=== PATIENT | female | born 1970 | race Caucasian/White ===

== ENCOUNTER 2020-12-12 11:03 | Observation (INO) ==
[2020-12-12 12:00] LABS: Basophils # (auto) 0.08 K/uL (0-0.2); Basophils % (auto) 1.1 %; Eosinophils # (auto) 0.11 K/uL (0-0.5); Eosinophils % (auto) 1.5 %; Hematocrit (blood only) 39.3 % (37-47); Hemoglobin 13.4 g/dL (12.0-16.0); Immature Granulocytes # (auto) 0.01 K/uL (0.00-0.02); Immature Granulocytes % (auto) 0.1 %; Lymphocytes # (auto) 2.64 K/uL (1.2-3.4); Lymphocytes % (auto) 35.5 %; Mean Corpuscular Hemoglobin 31.2 pg (25-34); Mean Corpuscular Hgb Conc 34.1 g/dL (32-36); Mean Corpuscular Volume 91.6 fL (80-100); Mean Platelet Volume 9.5 fL (7.4-10.4); Monocytes % (auto) 8.1 %; Neutrophils # (auto) 3.99 K/uL (1.4-6.5); Neutrophils % (auto) 53.7 %; Platelet Count 302 K/uL (130-400); RDW Coefficient of Variation 12.7 % (11.5-14.5); RDW Standard Deviation 42.5 fL (36.4-46.3); Red Blood Count 4.29 M/uL (4.2-5.4); White Blood Count 7.43 K/uL (4.8-10.8)
[2020-12-12 12:10] LABS: D Dimer < 190 ug/L FEU (0-500)
--- NOTE | 2020-12-12 12:14 | Emergency Department Note ---
Impression & Plan Palpitations, Ventricular premature beats, Abnormal ECG ED Provider Note INFORMANT: Patient ED PROVIDER(S): Darell Arredondo MD CHIEF COMPLAINT: Palpitations PLAN: Disposition: Admitted Condition: Good Outpatient prescription management: none Referral: None MEDICAL DECISION MAKING: Patient presented with department complaining of palpitations. Cardiac monitoring revealed frequent ectopy. She had brief periods of bigeminy. She also had a run of 3 beats of PVCs. There were several coupling events. The patient's CBC, D-dimer, troponin, chemistry panel were unremarkable. She had an abnormal EKG. I discussed the case with Dr. Ewing of [facility] cardiology. He asked for the patient to receive 25 mg of metoprolol tartrate as well as 40 mEq of oral potassium. This was ordered. He would like the hospitalist to admit the patient. He is going to come and see her personally. I discussed this with the patient and she is in agreement. I gave my usual and customary discussion regarding this issue. Triage Nursing notes reviewed and agree them. Vital Signs: reviewed and remarkable for no significant abnormalities Differential diagnosis: Premature contractions, electrolyte abnormality, cardiac dysrhythmia, thyroid dy sfunction, pulmonary embolism, infection, gastrointestinal, as well as other pathologies. Diagnostics interpreted by me: ECG: Twelve-lead ECG reveals sinus tachycardia at 107 bpm. Bilateral atrial enlargement present. Nonspecific T and ST abnormality present. No ST elevation. No PACs. Cardiac Monitoring: Cardiac monitoring ordered by me: The patient was placed on continuous cardiac monitoring and observed. It revealed a sinus rhythm with frequent PVCs at 87 bpm. Imaging studies: Chest x-ray. Findings: A chest x-ray was performed and revealed no pneumothorax, effusion, infiltrate, pulmonary edema, free air under the diaphragm, or wide mediastinum. Impression: No acute disease. HPI: The patient is a 50 year old female who presents to the Emergency Room with complaints of palpitations. This started a week ago and is persisting, but intermittent. The patient also notes the following associated symptoms, anxiety. The patient has taken no medication for relieving factors. Current pain is rated as 0/10. Pt denies LOC, headache, fevers, chills, diaphoresis, visual changes, neck pain, chest pain, breathing difficulties, nausea, vomiting, abdominal pain, back pain, melena, hematochezia, urinary symptoms, numbness, weakness, lymphadenopathy, rash, or other complaints. ROS: See above HPI for pertinent positives & negatives. A total of 10 systems reviewed and were otherwise negative. PAST MEDICAL HISTORY:See Below , pt denies PAST SURGICAL HISTORY:See Below, SANDRA FAMILY HISTORY:See Below SOCIAL HISTORY:See Below, -tobacco HOME MEDICATIONS:See Below ALLERGIES:See Below VITALS:See Below PHYSICAL EXAMINATION: GENERAL: Awake, alert, well-appearing, in no distress HENT: Normocephalic, atraumatic. Oropharynx unremarkable. EYES: Normal conjunctiva. Sclera non-icteric. NECK: Inspection normal. Non-tender. Supple. No nuchal rigidity. FROM. No masses. RESPIRATORY: Clear to auscultation. No wheezes. No rales. Normal respiratory effort. CARDIAC: Normal rate. Normal rhythm. No murmurs. No rubs. Extremities warm and well perfused. Pulses equal. No JVD. GI: Soft, non-distended. No tenderness to palpation. No rebound or guarding. No masses. RECTAL: Deferred. MUSCULOSKELETAL: Atraumatic. Chest examination reveals no tenderness. The back is symmetrical on inspection without obvious abnormality. There is no CVA tenderness to palpation. No joint edema. LOWER EXTREMITIES: Calves are equal size bilaterally and non-tender. No edema. No discoloration. NEURO: Normal sensorium. No sensory or motor deficits noted. SKIN: No rash or jaundice noted. Darell Arredondo MD Past Med/Surg History Medical History (Updated 12/12/20 @ 14:35 by Darell Arredondo MD) Fibroids History of abnormal cervical Papanicolaou smear Hx of human papillomavirus infection Surgical History H/O: hysterectomy History of loop electrical excision procedure (LEEP) S/P dilation and curettage S/P wisdom tooth extraction Family History Other No pertinent family history Social History Smoking Status: Never smoker Preferred Language: [place] Feels Safe at Home: Yes Allergies Allergies Allergy/AdvReac Type Severity Reaction Status Date / Time No Known Drug Allergies Allergy Verified 12/12/20 13:00 Home Meds Home Medications Medication Instructions Recorded Confirmed conjugated estrogens 0.625 mg 0.625 mg PO DAILY tab 04/06/19 12/12/20 tablet Results & Data (ED) Vital Signs Vital Signs - 24 hr 12/12/20 11:17 12/12/20 11:20 12/12/20 11:30 Temperature Temperature Source Pulse Rate 108 H 106 H 87 Pulse Rate [Right Finger] Pulse Rate from SpO2 Sensor 87 Pulse Rhythm Pulse Rhythm [Right Finger] Pulse Strength Pulse Strength [Right Finger] Respiratory Rate 15 13 17 Respiratory Effort / Characteristics Respiratory Depth Respiratory Pattern Blood Pressure 146/92 H 146/68 H Blood Pressure [Left Arm] Blood Pressure Mean 110 94 Blood Pressure Mean [Left Arm] Blood Pressure Position [Left Arm] Pulse Oximetry 100 Oxygen Delivery Method Sepsis Recent Fever Within 48 Hours Sepsis New/Unexplained Change in Mental Status Sepsis Action Taken by Nursing 12/12/20 11:31 12/12/20 11:34 12/12/20 12:00 Temperature 36.5 C Temperature Source Oral Pulse Rate 82 105 H 78 Pulse Rate [Right Finger] Pulse Rate from SpO2 Sensor 82 78 Pulse Rhythm Regular Pulse Rhythm [Right Finger] Pulse Strength Normal Pulse Strength [Right Finger] Respiratory Rate 11 L 26 H 13 Respiratory Effort / Characteristics Respiratory Depth Shallow Respiratory Pattern Tachypnea Blood Pressure 142/84 H Blood Pressure [Left Arm] Blood Pressure Mean 103 Blood Pressure Mean [Left Arm] Blood Pressure Position [Left Arm] Pulse Oximetry 100 100 100 Oxygen Delivery Method Room Air Sepsis Recent Fever Within 48 Hours No Sepsis New/Unexplained Change in Mental Status No Sepsis Action Taken by Nursing No Action Required 12/12/20 12:01 12/12/20 12:07 Temperature Temperature Source Pulse Rate 75 Pulse Rate [Right Finger] 77 Pulse Rate from SpO2 Sensor 73 Pulse Rhythm Pulse Rhythm [Right Finger] Regular Pulse Strength Pulse Strength [Right Finger] Normal Respiratory Rate 14 19 Respiratory Effort / Characteristics Non-Labored Respiratory Depth Normal Respiratory Pattern Blood Pressure 113/63 Blood Pressure [Left Arm] 113/63 Blood Pressure Mean 79 Blood Pressure Mean [Left Arm] 79 Blood Pressure Position [Left Arm] Semi-fowlers Pulse Oximetry 100 99 Oxygen Delivery Method Room Air Sepsis Recent Fever Within 48 Hours Sepsis New/Unexplained Change in Mental Status Sepsis Action Taken by Nursing Laboratory Data Result diagrams: 12/12/20 11:30 12/12/20 11:30 Lab Results 12/12/20 12/12/20 12/12/20 Range/Units 11:29 11:30 11:30 WBC 7.43 (4.8-10.8) K/uL RBC 4.29 (4.2-5.4) M/uL Hgb 13.4 (12.0-16.0) g/dL Hct 39.3 (37-47) % MCV 91.6 (80-100) fL MCH 31.2 (25-34) pg MCHC 34.1 (32-36) g/dL RDW Std Deviation 42.5 (36.4-46.3) fL RDW Coeff of Steve 12.7 (11.5-14.5) % Plt Count 302 (130-400) K/uL MPV 9.5 (7.4-10.4) fL Immature Gran % (Auto) 0.1 % Neut % (Auto) 53.7 % Lymph % (Auto) 35.5 % [place] % (Auto) 8.1 % Eos % (Auto) 1.5 % Baso % (Auto) 1.1 % Neut # (Auto) 3.99 (1.4-6.5) K/uL Lymph # (Auto) 2.64 (1.2-3.4) K/uL [place] # (Auto) 0.60 H (0.11-0.59) K/uL Eos # (Auto) 0.11 (0-0.5) K/uL Baso # (Auto) 0.08 (0-0.2) K/uL Immature Gran # (Auto) 0.01 (0.00-0.02) K/uL D-Dimer < 190 (0-500) ug/L FEU Sodium (136-145) mmol/L Potassium (3.5-5.1) mmol/L Chloride (98-107) mmol/L Carbon Dioxide (21-32) mmol/L Anion Gap (3-11) BUN (7-18) mg/dl Creatinine (0.6-1.2) mg/dl Est Cr Clr Drug Dosing ml/min Est GFR ( Amer) Est GFR (Non-Af Amer) BUN/Creatinine Ratio (10-20) Glucose (70-99) mg/dl POC Glucose 94 (70-99) mg/dl Calcium (8.5-10.1) mg/dl Magnesium (1.8-2.4) mg/dl Total Bilirubin (0.2-1) mg/dl AST (15-37) U/L ALT (12-78) U/L Alkaline Phosphatase (45-117) U/L Troponin I (0-0.045) ng/ml Total Protein (6.4-8.2) gm/dl Albumin (3.4-5.0) gm/dl Globulin (2.5-4.0) gm/dl Albumin/Globulin Ratio (0.9-2) TSH (0.300-4.500) uIu/ml HCG, Qual (Negative) 12/12/20 12/12/20 Range/Units 11:30 11:30 WBC (4.8-10.8) K/uL RBC (4.2-5.4) M/uL Hgb (12.0-16.0) g/dL Hct (37-47) % MCV (80-100) fL MCH (25-34) pg MCHC (32-36) g/dL RDW Std Deviation (36.4-46.3) fL RDW Coeff of Steve (11.5-14.5) % Plt Count (130-400) K/uL MPV (7.4-10.4) fL Immature Gran % (Auto) % Neut % (Auto) % Lymph % (Auto) % [place] % (Auto) % Eos % (Auto) % Baso % (Auto) % Neut # (Auto) (1.4-6.5) K/uL Lymph # (Auto) (1.2-3.4) K/uL [place] # (Auto) (0.11-0.59) K/uL Eos # (Auto) (0-0.5) K/uL Baso # (Auto) (0-0.2) K/uL Immature Gran # (Auto) (0.00-0.02) K/uL D-Dimer (0-500) ug/L FEU Sodium 138 (136-145) mmol/L Potassium 3.4 L (3.5-5.1) mmol/L Chloride 106 (98-107) mmol/L Carbon Dioxide 25 (21-32) mmol/L Anion Gap 7.0 (3-11) BUN 18 (7-18) mg/dl Creatinine 0.66 (0.6-1.2) mg/dl Est Cr Clr Drug Dosing 97.2 ml/min Est GFR ( Amer) 120.2 Est GFR (Non-Af Amer) 103.7 BUN/Creatinine Ratio 26.8 H (10-20) Glucose 96 (70-99) mg/dl POC Glucose (70-99) mg/dl Calcium 8.8 (8.5-10.1) mg/dl Magnesium 2.0 (1.8-2.4) mg/dl Total Bilirubin 0.4 (0.2-1) mg/dl AST 20 (15-37) U/L ALT 20 (12-78) U/L Alkaline Phosphatase 56 (45-117) U/L Troponin I < 0.015 (0-0.045) ng/ml Total Protein 7.7 (6.4-8.2) gm/dl Albumin 3.9 (3.4-5.0) gm/dl Globulin 3.8 (2.5-4.0) gm/dl Albumin/Globulin Ratio 1.0 (0.9-2) TSH 2.020 (0.300-4.500) uIu/ml HCG, Qual Negative (Negative) Administered Medications Discontinued Medications Metoprolol Tartrate (Metoprolol Tartrate 25 Mg Tab) 25 mg PO NOW STA Stop: 12/12/20 13:52 Last Admin: 12/12/20 14:12 Dose: 25 mg Documented by: [id number] Potassium Chloride (Potassium Chloride Crtab 20 Meq Tabcr) 40 meq PO NOW STA Stop: 12/12/20 13:52 Last Admin: 12/12/20 14:12 Dose: 40 meq Documented by: [id number] Imaging Data Radiologist's Impression: Chest X-Ray 12/12/20 11:44 XR chest 1V portable CLINICAL HISTORY: Dysrhythmia COMPARISON STUDY: No previous studies for comparison. FINDINGS: Lung volumes are normal. Lungs are clear. There is no pneumothorax or pleural effusion. Cardiac size is normal. Mediastinal contours are normal. There is no evidence for pulmonary edema. Intramedullary mellisa within the left humerus is partially imaged. There are suspected bilateral breast implants. Note is made of mild dextroscoliosis of the mid to lower thoracic spine. IMPRESSION: No acute cardiopulmonary findings. ACT 112: Negative or not required by law. Electronically signed by: Luis Baeza M.D. 12/12/2020 12:49 PM Discharge Plan Visit Data Chief Complaint: Arrhythmia/Palpitations Stated Complaint: IRREGULAR HEART BEAT,FEELING FAINT ED Provider: Darell Arredondo Discharge Problem: Palpitations, Ventricular premature beats, Abnormal ECG Forms Stand Alone Forms: [facility] Prescriptions Prescriptions: No Action Premarin 0.625 mg tablet 0.625 mg PO DAILY RF: 0
[2020-12-12 12:17] LABS: Pregnancy Test, Serum Negative (Negative)
[2020-12-12 12:21] LABS: Alanine Aminotransferase 20 U/L (12-78); Albumin Level 3.9 gm/dl (3.4-5.0); Aspartate Aminotransferase 20 U/L (15-37); BUN Creatinine Ratio 26.8 (10-20); Blood Urea Nitrogen 18 mg/dl (7-18); Calcium 8.8 mg/dl (8.5-10.1); Carbon Dioxide 25 mmol/L (21-32); Chloride 106 mmol/L (98-107); Creatinine Clr Calc Pharmacy 97.2 ml/min; Est GFR (African American) 120.2; Est GFR (Non-African American) 103.7; Glucose 96 mg/dl (70-99); Potassium 3.4 mmol/L (3.5-5.1); Sodium 138 mmol/L (136-145)
[2020-12-12 12:32] LABS: Alkaline Phosphatase 56 U/L (45-117); Bilirubin,Total 0.4 mg/dl (0.2-1); Globulin 3.8 gm/dl (2.5-4.0); Total Protein 7.7 gm/dl (6.4-8.2); Troponin I < 0.015 ng/ml (0-0.045)
--- NOTE | 2020-12-12 12:51 | XRay Report ---
XR chest 1V portable CLINICAL HISTORY: Dysrhythmia COMPARISON STUDY: No previous studies for comparison. FINDINGS: Lung volumes are normal. Lungs are clear. There is no pneumothorax or pleural effusion. Car diac size is normal. Mediastinal contours are normal. There is no evidence for pulmonary edema. Intra medullary mellisa within the left humerus is partially imaged. There are suspected bilateral breast impla nts. Note is made of mild dextroscoliosis of the mid to lower thoracic spine. IMPRESSION: No acute cardiopulmonary findings. ACT 112: Negative or not required by law. Electronically signed by: Luis Baeza M.D. 12/12/2020 12:49 PM
[2020-12-12] MEDS ORDERED: POTASSIUM CHLORIDE CRTAB 20 MEQ TABCR PO STA (13:51)
[2020-12-12] MEDS ORDERED: METOPROLOL TARTRATE 25 MG TAB PO STA (13:51)
--- NOTE | 2020-12-12 14:44 | History & Physical Report ---
Date of Service December 12, 2020 Assessment & Plan (1) Palpitations: (2) Ventricular premature beats: (3) Hypokalemia: (4) Abnormal ECG: This is a 50 year old F who is otherwise healthy who presents to ED 2/2 to palpitations x 1 week. ECG shows sinus tachycardia and telemetry reveals a multifocal PVC. She was seen and evaluated by cardiology in ED. She received metoprolol tartrate 25 mg x 1 as well as potassium replacement. Admit to telemetry for further heart monitoring Cardiology consulted Obtain echocardiogram Metoprolol initiated Replace potassium Check Lyme, Anaplasma and babesiosis screen per cardiology Patient does have history of anxiety and states she occasionally takes Xanax and vapes medical marijuana -obtain drug tox screen Dispo: Telemetry PCP: Lorena Full Code DVT ppx: SCD/TEDS Pt was seen and examined in collaboration with Dr. Gerber, please see addendum History of Present Illness Chief Complaint: Palpitations and dizziness x 1 week. Primary Care Provider: Landry Carrillo DO This is a 50 year old F who is otherwise healthy who presents to ED 2/2 to palpitations x 1 week. Sx have been worsening causing her to be dizzy. Father is at bedside. She was at [facility] today when palpitations got worse and felt like she was going to pass out to she came to ED. She was to see PCP in clinic. Sx comes and goes. Caffeine seems to worsen sx. Drinks 2 cups daily which is normal for her. Occasional ETOH use. Denies new medications. She denies any recent illness. She has chronic difficulty with constipation and she takes stool softeners for that. She does admit to anxiety and increased stress. Occassionally a, "little piece of xanax," once a month she takes. She does not take anything for anxiety on regular basis. Denies f/c/s, chest pain, sob with exertion, sob, cough, uri sx, n/v/d, abdominal pain, change in bowel or bladder habits. She is very active and was out hiking. She did notice tick on her legs. No prior hx of tick borne disease. She has experienced palpitations in past, but not to this degree. Allergies Allergy/AdvReac Type Severity Reaction Status Date / Time No Known Drug Allergies Allergy Verified 12/12/20 13:00 Home Medications Medication Instructions Recorded Confirmed Type conjugated estrogens 0.625 mg 0.625 mg PO DAILY tab 04/06/19 12/12/20 History tablet Past Med/Surg History Medical History Fibroids History of abnormal cervical Papanicolaou smear Hx of human papillomavirus infection Surgical History H/O: hysterectomy History of loop electrical excision procedure (LEEP) S/P dilation and curettage S/P wisdom tooth extraction Family History Father Aortic valve replaced History of heart bypass surgery, Onset Age: 69 Denies family history of Hypertension Social History Smoking Status: Never smoker Tobacco Type: E-cigarettes / Vaping Hx Alcohol Use: No (holidays) Hx Substance Use: No Preferred Language: Portuguese Communication Ability: Effective Computer Mechanic Required: No Beliefs That Will Affect Care: None Current Living Situation: Alone Other Information That Helps Us Care for You: No Feels Safe at Home: Yes Safety Concerns: Feels Safe At This Time Assistive Devices: None Review of Systems Review of Systems: All systems reviewed & are unremarkable except as noted in HPI & below Physical Exam Physical Exam: Constitutional: WD/WN, F, vitals as above, NAD, sitting up in bed, pleasant, conversing easily Head: Normocephalic, Atraumatic Eyes: PERRL, conjunctivae normal, anicteric sclerae ENMT: external ear and nose normal, oropharynx normal Neck: trachea midline, no thyromegaly normal visual inspection Respiratory: normal respiratory effort, lungs clear to auscultation, no wheeze, rales, rhonchi. Normal insp/exp effort, no accessory muscle use Cardiovascular: RRR, no murmur, no edema Vessels: no JVD or carotid bruit Chest: normal inspection of chest Abdomen: normal bowel sounds, soft, nontender, no hepatosplenomegaly Musculoskeletal: no cyanosis or clubbing, extremities motor strength 5/5 Skin: no rashes, warm and dry normal turgor Neurologic: PERRL, no face palsy, no dysarthria CN's II-XI intact bilaterally and moves all extremities Psychiatric: A+Ox3, euthymic affect : deferred Results & Data Results & Data ([facility]) Vital Signs (Past 12 Hours) Vital Signs Temp Pulse Pulse Resp BP BP Pulse Ox 12/12/20 12:07 77 19 113/63 99 12/12/20 12:01 75 14 113/63 100 12/12/20 12:00 78 13 100 12/12/20 11:34 36.5 C 105 H 26 H 142/84 H 100 12/12/20 11:31 82 11 L 100 12/12/20 11:30 87 17 146/68 H 100 12/12/20 11:20 106 H 13 12/12/20 11:17 108 H 15 146/92 H Diagnostic Findings Chest X-Ray 12/12/20 11:44 XR chest 1V portable CLINICAL HISTORY: Dysrhythmia COMPARISON STUDY: No previous studies for comparison. FINDINGS: Lung volumes are normal. Lungs are clear. There is no pneumothorax or pleural effusion. Cardiac size is normal. Mediastinal contours are normal. There is no evidence for pulmonary edema. Intramedullary mellisa within the left humerus is partially imaged. There are suspected bilateral breast implants. Note is made of mild dextroscoliosis of the mid to lower thoracic spine. IMPRESSION: No acute cardiopulmonary findings. ACT 112: Negative or not required by law. Electronically signed by: Luis Baeza M.D. 12/12/2020 12:49 PM Medications Administered Discontinued Medications Metoprolol Tartrate (Metoprolol Tartrate 25 Mg Tab) 25 mg PO NOW STA Stop: 12/12/20 13:52 Last Admin: 12/12/20 14:12 Dose: 25 mg Documented by: [id number] Potassium Chloride (Potassium Chloride Crtab 20 Meq Tabcr) 40 meq PO NOW STA Stop: 12/12/20 13:52 Last Admin: 12/12/20 14:12 Dose: 40 meq Documented by: [id number] ECG Rate (beats per minute): 107 Rhythm: sinus tachycardia Findings: + nonspecific-ST abn and + PVC COVID-19 Results Results COVID-19 Adm Lab Results: RBC 4.29 M/uL (4.2-5.4) 12/12/20 WBC 7.43 K/uL (4.8-10.8) 12/12/20 Hgb 13.4 g/dL (12.0-16.0) 12/12/20 Hct 39.3 % (37-47) 12/12/20 Plt Count 302 K/uL (130-400) 12/12/20 Neutrophils (%) (Auto) 53.7 % 12/12/20 Lymphocytes (%) (Auto) 35.5 % 12/12/20 Monocytes # (Auto) 0.60 K/uL (0.11-0.59) H 12/12/20 Eosinophils # (Auto) 0.11 K/uL (0-0.5) 12/12/20 Immature Granulocyte % (Auto) 0.1 % 12/12/20 Neutrophils # (Auto) 3.99 K/uL (1.4-6.5) 12/12/20 Lymphocytes # (Auto) 2.64 K/uL (1.2-3.4) 12/12/20 Monocytes # (Auto) 0.60 K/uL (0.11-0.59) H 12/12/20 Eosinophils # (Auto) 0.11 K/uL (0-0.5) 12/12/20 Basophils # (Auto) 0.08 K/uL (0-0.2) 12/12/20 Immature Granulocyte # (Auto) 0.01 K/uL (0.00-0.02) 12/12/20 Na 138 mmol/L (136-145) 12/12/20 K 3.4 mmol/L (3.5-5.1) L 12/12/20 Cl 106 mmol/L (98-107) 12/12/20 CO2 25 mmol/L (21-32) 12/12/20 Anion Gap 7.0 (3-11) 12/12/20 BUN 18 mg/dl (7-18) 12/12/20 Creatinine 0.66 mg/dl (0.6-1.2) 12/12/20 BUN/Creatinine Ratio 26.8 (10-20) H 12/12/20 Glucose Level 96 mg/dl (70-99) 12/12/20 Ca 8.8 mg/dl (8.5-10.1) 12/12/20 Total Bilirubin 0.4 mg/dl (0.2-1) 12/12/20 AST/SGOT 20 U/L (15-37) 12/12/20 ALT/SGPT 20 U/L (12-78) 12/12/20 Alkaline Phosphatase 56 U/L (45-117) 12/12/20 Total Protein 7.7 gm/dl (6.4-8.2) 12/12/20 Albumin 3.9 gm/dl (3.4-5.0) 12/12/20 Globulin 3.8 gm/dl (2.5-4.0) 12/12/20 Albumin/Globulin Ratio 1.0 (0.9-2) 12/12/20 Troponin I < 0.015 ng/ml (0-0.045) 12/12/20 D-Dimer < 190 ug/L FEU (0-500) 12/12/20 COVID-19 PCR NEGATIVE (Negative) 12/12/20 Influenza Virus Type A (PCR) Negative (Neg) 12/12/20 Influenza Virus Type B (PCR) Negative (Neg) 12/12/20 Chest X-Ray 12/12/20 Code Status & VTE Plan Code Status Full Code VTE Prophylaxis Plan VTE Prophylaxis will be ordered: Yes Supervising Physician Co-Signing Physician Notes Patient is a 50-year-old female with no significant past medical history presents with history of worsening palpitations associated with dizziness since 1 week duration. She admits that caffeine intake increases her palpitations. Please review HPI for complete details of presentation. EKG showed frequent multifocal PVCs and was noted to be hypokalemic on labs. TSH within normal limits. She denies any history of tachybradycardia arrhythmias in the past. On exam patient is thin, no apparent distress, normocephalic atraumatic, lungs are clear to auscultation, normal breath sounds, S1-S2, no murmur, no pedal edema, abdomen soft, nontender, normal bowel sounds, alert, awake, oriented, grossly no focal neurological deficits. Patient is admitted for management of symptomatic PVCs. Will check Lyme screen. Replace potassium. Start on metoprolol 25 mg twice daily. Check resting echo. Monitor on telemetry. Cardiology consulted. She admits to using marijuana 1 week ago. Will obtain urine toxicology screen. I personally reviewed the record. Patient is interviewed and examined at bedside. Patient's care is coordinated with [place] Dan PA-C. Please refer to the documentation above for details of patient's presentation and for discussion of other issues.
[2020-12-12 15:41] LABS: Influenza A virus by PCR Negative (Neg); Influenza B virus by PCR Negative (Neg); RSV by PCR Negative (Neg); SARS CoV2 RNA(COVID-19) InHosp NEGATIVE (Negative)
[2020-12-12 16:20] LABS: Lyme Ab IgG w/WB Rflx Negative (Negative); Lyme Ab IgM w/WB Rflx Negative (Negative)
--- NOTE | 2020-12-12 16:27 | Cardiology Consultation ---
Date of Consultation December 12, 2020 Assessment & Plan (1) Frequent PVCs: (2) Dizziness: (3) Tick bite: (4) Abnormal ECG: (5) Hypokalemia: It was my pleasure to see Ms. Dickson in consultation today. The pathophysiology and treatment options for symptomatic PVCs were discussed with her at great lengths today. I believe the most prudent course of action at this point would be to obtain a tick bite work-up for Lyme, babesiosis etc. Her potassium is a little on the low side and I recommend giving her 40 mEq p.o. x1 now which was given in the ER. I also recommended giving her a one-time dose of metoprolol tartrate 25 mg x 1 now as well. We will obtain a 2D echocardiogram to eval for any structural abnormalities. Admit to telemetry to rule out any further underlying arrhythmias. She was reexamined 1 hour after receiving the metoprolol states that she feels 100% better now. History of Present Illness Reason for Consultation: Palpitations and lightheadedness Requesting Physician: [facility] Attending Physician: [facility] History of Present Illness It was my pleasure to see Ms. Dickson in cardiac consultation today 12/12/2020. She is a very pleasant and very healthy 50-year-old woman who presented to the emergency department today with complaints of palpitations and lightheadedness. She states that she first noticed the symptoms approximately 1 week ago. Her heart would occasionally seem to race or pounding quickly in her chest and this was occasionally associated with dizziness. Today she was driving to the grocery store when she had an episode while driving it made her significantly dizzy to the point where she pulled over. At that time she came into the emergency department for further evaluation. Initial work-up was unremarkable except for a diffusely abnormal EKG and frequent multifocal PVCs on telemetry. During examination patient was experiencing frequent palpitations that do would correlate with PVCs on telemetry. She denies anything out of the ordinary lately without any significant dietary changes. No significant alcohol, recreational drug use or excess caffeine use as of late. She does exercise on a regular basis and never has palpitations while exercising. She does spend a lot of time outdoors and recently had multiple ticks removed from her lower extremities. Upon further questioning she notes that her left knee has been achy for the last week as well. Allergies Allergy/AdvReac Type Severity Reaction Status Date / Time No Known Drug Allergies Allergy Verified 12/12/20 13:00 Home Medications Medication Instructions Recorded Confirmed Type conjugated estrogens 0.625 mg 0.625 mg PO DAILY tab 04/06/19 12/12/20 History tablet Patient History Medical History (Updated 12/12/20 @ 16:25 by Kyle Ewing DO) Fibroids History of abnormal cervical Papanicolaou smear Hx of human papillomavirus infection Surgical History H/O: hysterectomy History of loop electrical excision procedure (LEEP) S/P dilation and curettage S/P wisdom tooth extraction Family History Father Aortic valve replaced History of heart bypass surgery, Onset Age: 68 Denies family history of Hypertension Social History Smoking Status: Never smoker Tobacco Type: E-cigarettes / Vaping Hx Alcohol Use: Yes Alcohol type: beer and wine Alcohol Intake Frequency: 2-3 x/Week Alcohol Intake Frequency Comment: 1 wine every other day Hx Substance Use: No Preferred Language: Macedonian Feels Safe at Home: Yes Review of Systems Review of Systems: All systems reviewed & are unremarkable except as noted in HPI & below Physical Exam Physical Exam: Physical Exam: General: Awake, alert and oriented x 3. No acute distress. HEENT: Normocephalic, atraumatic. Pupils equal, round and reactive to light and accommodation. Extraocular muscles are intact. Anicteric sclera. Moist mucous membranes. Neck: No JVD. No bruit. Cardiovascular: Regular. No S-4. Normal S-1 and S-2. No S-3. No murmurs, rubs or gallops. Pulmonary: Clear to auscultation bilaterally. No rales, rhonchi, or wheezing. Abdomen: Bowel sounds x 4, soft. No rebound, guarding or tenderness. No organomegaly. Extremities: No clubbing, cyanosis or edema. +2 pedal pulses bilaterally. Skin: Warm and dry. Results & Data ([facility]) Vital Signs (Past 12 Hours) Vital Signs Temp Pulse Pulse Resp BP BP Pulse Ox 12/12/20 16:01 63 16 99 04/29/21 16:00 65 17 120/79 99 12/12/20 15:31 66 15 100 12/12/20 15:30 66 19 118/62 12/12/20 15:01 71 15 99 12/12/20 15:00 69 16 139/46 L 100 12/12/20 14:31 90 22 100 12/12/20 14:30 90 18 135/82 100 12/12/20 14:01 93 H 15 100 12/12/20 14:00 88 15 117/67 100 12/12/20 13:31 17 12/12/20 13:30 19 117/66 12/12/20 13:17 17 136/77 99 12/12/20 13:00 24 12/12/20 12:31 75 17 100 12/12/20 12:30 74 14 139/70 100 12/12/20 12:07 77 19 113/63 99 12/12/20 12:02 75 14 100 12/12/20 12:01 75 14 113/63 100 12/12/20 12:00 78 13 100 12/12/20 11:34 36.5 C 105 H 26 H 142/84 H 100 12/12/20 11:31 82 11 L 100 12/12/20 11:30 87 17 146/68 H 100 12/12/20 11:20 106 H 13 12/12/20 11:17 108 H 15 146/92 H
[2020-12-12] MEDS ORDERED: ALUMINUM/MAGNESIUM SUSP 30 ML UDC PO PRN (18:36)
[2020-12-12] MEDS ORDERED: POTASSIUM CHLORIDE CRTAB 20 MEQ TABCR PO ONE (18:36)
[2020-12-12] MEDS ORDERED: MAGNESIUM HYDROXIDE SUSP 30 ML UDC PO PRN (18:36)
[2020-12-12] MEDS ORDERED: POLYETHYLENE (MIRALAX) 17 GM PACK PO PRN (18:36)
[2020-12-12] MEDS ORDERED: ONDANSETRON INJ 2 MG/ML 2 ML VIAL IV PRN (18:36)
[2020-12-12] MEDS ORDERED: ACETAMINOPHEN 325 MG TAB PO PRN (18:36)
[2020-12-12] MEDS ORDERED: METOPROLOL SUCC 25MG EXT REL TAB PO SCH (21:00)
[2020-12-12] MEDS ORDERED: diphenhydrAMINE Capsule 25 MG CAP PO ONE (21:39)
[2020-12-12 22:06] LABS: Appearance Urine Clear (Clear); Bilirubin Urine Negative (Negative); Blood Urine Negative (Negative); Color Urine Yellow; Glucose Urine UA Negative (Negative); Ketones Urine 1+ (Negative); Leukocyte Esterase Urine Negative (Negative); Nitrite Urine Negative (Negative); Protein Urine Negative (Negative); Specific Gravity Urine 1.011 (1.000-1.030); Urobilinogen Urine Negative (Negative)
[2020-12-12 22:25] LABS: Amphetamines+Metham, Urine Neg (Neg); Barbiturates, Urine Neg (Neg); Benzodiazepine, Urine Neg (Neg); Cocaine, Urine Neg (Neg); MDMA (Ecstacy), Urine Neg (Neg); Methadone, Urine Neg (Neg); Opiate, Urine Neg (Neg); Phencyclidine, Urine Neg (Neg)
--- NOTE | 2020-12-13 06:53 | Electrocardiogram Report ---
Test Reason : Blood Pressure : / mmHG Vent. Rate : 107 BPM Atrial Rate : 107 BPM P-R Int : 140 ms QRS Dur : 092 ms QT Int : 368 ms P-R-T Axes : 070 004 -34 degrees QTc Int : 491 ms Poor data quality, interpretation may be adversely affected Sinus tachycardia Biatrial enlargement Incomplete right bundle branch block Nonspecific ST and T wave abnormality Abnormal ECG No previous ECGs available Confirmed by Aryan Francois ([id number]) on 12/13/2020 6:53:06 AM Referred By: Confirmed By:Aryan Francois
[2020-12-13 07:16] LABS: Hematocrit (blood only) 39.2 % (37-47); Hemoglobin 13.6 g/dL (12.0-16.0); Mean Corpuscular Hemoglobin 31.9 pg (25-34); Mean Corpuscular Hgb Conc 34.7 g/dL (32-36); Mean Platelet Volume 9.3 fL (7.4-10.4); Platelet Count 306 K/uL (130-400); RDW Coefficient of Variation 12.7 % (11.5-14.5); RDW Standard Deviation 42.8 fL (36.4-46.3); Red Blood Count 4.26 M/uL (4.2-5.4); White Blood Count 4.52 K/uL (4.8-10.8)
[2020-12-13 07:54] LABS: BUN Creatinine Ratio 14.3 (10-20); Calcium 8.7 mg/dl (8.5-10.1); Creatinine Clr Calc Pharmacy 77.2 ml/min; Est GFR (African American) 108.5; Est GFR (Non-African American) 93.6; Potassium 4.1 mmol/L (3.5-5.1)
[2020-12-13] MEDS: ESTROGENS, CONJUGATED 0.625 MG TAB PO SCH ×2 (08:45→08:46)
--- NOTE | 2020-12-13 09:00 | Hospitalist Progress Note ---
Date of Service December 13, 2020 Assessment & Plan (1) Palpitations: (2) Ventricular premature beats: (3) Hypokalemia: (4) Abnormal ECG: This is a 50 year old F who is otherwise healthy who presents to ED 2/2 to palpitations x 1 week. ECG shows sinus tachycardia and telemetry reveals a multifocal PVC. She was seen and evaluated by cardiology in ED. She received metoprolol tartrate 25 mg x 1 as well as potassium replacement. Admit to telemetry for further heart monitoring Cardiology consulted Echocardiogram obtained -normal study Metoprolol initiated Replaced potassium, K on admission 3.4 Lyme - negative, Anaplasma blood smear negative Anaplasma and babesiosis serology - pending Patient does have history of anxiety and states she occasionally takes Xanax and vapes medical marijuana -obtained drug tox screen- negative Clinically patient is much improved, denies any more dizziness or palpitations Telemetry reviewed, shows mostly sinus rhythm Discussed with cardiology, plan to follow-up today in the office for a Zio patch, will discharge on metoprolol Dispo: Telemetry PCP: Dr. Carrillo Full Code DVT ppx: SCD/TEDS Admission and Anticipated Discharge Date Admission Date: December 12, 2020 Subjective Patient seen in follow-up of dizziness, secondary to frequent symptomatic PVCs Currently she is sitting up in bed, in no acute distress Denies any dizziness, also denies any palpitations, chest pain or shortness of breath Patient also denies any fevers or chills, overall feels well, reports being hungry and inquiring about any further testing or going home Telemetry reviewed, shows mostly sinus rhythm Review of Systems Review of Systems: All systems reviewed & are unremarkable except as noted in HPI & below Constitutional: no fever and no chills Respiratory: no cough and no dyspnea Cardiovascular: no chest pain and no palpitations Gastrointestinal: no abdominal pain, no nausea and no vomiting Physical Exam Physical Exam: Constitutional: WD/WN, F, vitals as above, NAD, sitting up in bed, pleasant, conversing easily Head: Normocephalic, Atraumatic Eyes: PERRL EOMI, conjunctivae normal, anicteric sclerae ENMT: external ear and nose normal, oropharynx normal Neck: trachea midline, no thyromegaly normal visual inspection Respiratory: normal respiratory effort, lungs clear to auscultation, no wheeze, rales, rhonchi. Normal insp/exp effort, no accessory muscle use Cardiovascular: RRR, no murmur, no edema Chest: normal inspection of chest Abdomen: normal bowel sounds, soft, nontender Musculoskeletal: no cyanosis or clubbing, extremities motor strength 5/5 Skin: no rashes, warm and dry normal turgor Neurologic: PERRL, no face palsy, no dysarthria, moves all extremities Psychiatric: A+Ox3, euthymic affect Results & Data Results & Data ([facility]) Vital Signs (Past 12 Hours) Vital Signs Temp Pulse Pulse Resp BP Pulse Ox 12/13/20 08:36 70 12/13/20 08:21 36.9 C 62 18 107/70 98 12/13/20 04:00 37.2 C 18 99 12/12/20 23:48 36.6 C 63 18 117/72 97 12/12/20 23:37 54 L Laboratory Results 12/13/20 12/13/20 12/13/20 Range/Units 06:36 06:36 06:36 WBC 4.52 L (4.8-10.8) K/uL RBC 4.26 (4.2-5.4) M/uL Hgb 13.6 (12.0-16.0) g/dL Hct 39.2 (37-47) % MCV 92.0 (80-100) fL MCH 31.9 (25-34) pg MCHC 34.7 (32-36) g/dL RDW Std Deviation 42.8 (36.4-46.3) fL RDW Coeff of Steve 12.7 (11.5-14.5) % Plt Count 306 (130-400) K/uL MPV 9.3 (7.4-10.4) fL Immature Gran % (Auto) % Neut % (Auto) % Lymph % (Auto) % [place] % (Auto) % Eos % (Auto) % Baso % (Auto) % Neut # (Auto) (1.4-6.5) K/uL Lymph # (Auto) (1.2-3.4) K/uL [place] # (Auto) (0.11-0.59) K/uL Eos # (Auto) (0-0.5) K/uL Baso # (Auto) (0-0.2) K/uL Immature Gran # (Auto) (0.00-0.02) K/uL D-Dimer (0-500) ug/L FEU Sodium 138 (136-145) mmol/L Potassium 4.1 D (3.5-5.1) mmol/L Chloride 107 (98-107) mmol/L Carbon Dioxide 27 (21-32) mmol/L Anion Gap 4.0 (3-11) BUN 11 (7-18) mg/dl Creatinine 0.75 (0.6-1.2) mg/dl Est Cr Clr Drug Dosing 77.2 ml/min Est GFR ( Amer) 108.5 Est GFR (Non-Af Amer) 93.6 BUN/Creatinine Ratio 14.3 (10-20) Glucose 81 (70-99) mg/dl POC Glucose (70-99) mg/dl Estimat Average Glucose Pending Hemoglobin A1c Pending Calcium 8.7 (8.5-10.1) mg/dl Magnesium (1.8-2.4) mg/dl Total Bilirubin (0.2-1) mg/dl AST (15-37) U/L ALT (12-78) U/L Alkaline Phosphatase (45-117) U/L Troponin I (0-0.045) ng/ml Total Protein (6.4-8.2) gm/dl Albumin (3.4-5.0) gm/dl Globulin (2.5-4.0) gm/dl Albumin/Globulin Ratio (0.9-2) Triglycerides 142 (0-150) mg/dl Cholesterol 271 H (0-200) mg/dl LDL Cholesterol, Calc 138 mg/dl VLDL Cholesterol, Calc 28 mg/dl HDL Cholesterol 105 mg/dl Cholesterol/HDL Ratio 3 TSH (0.300-4.500) uIu/ml HCG, Qual (Negative) Urine Color Urine Appearance (Clear) Urine pH (4.5-7.5) Ur Specific [place] (1.000-1.030) Urine Protein (Negative) Urine Glucose (UA) (Negative) Urine Ketones (Negative) Urine Blood (Negative) Urine Nitrite (Negative) Urine Bilirubin (Negative) Urine Urobilinogen (Negative) Ur Leukocyte Esterase (Negative) Urine Opiates Screen (Neg) Ur Methadone, Qual (Neg) Urine Barbiturates (Neg) Ur Phencyclidine (PCP) (Neg) U Amphetamin/Meth Scrn (Neg) MDMA (Ecstasy) Screen (Neg) U Benzodiazepines Scrn (Neg) Ur Cocaine Metabolite (Neg) U Marijuana (THC) Screen (Neg) Anaplasma Smear A. phagocytophilum DNA Babesia microti IgG Ab Babesia microti IgM Ab Babesia Interpretation Lyme Disease IgG Ab (Negative) Lyme Disease IgM Ab (Negative) COVID-19 Eval Order SARS-CoV-2 (PCR) (Negative) Influenza Type A (PCR) (Neg) Influenza Type B (PCR) (Neg) RSV (RT-PCR) (Neg) 12/12/20 12/12/20 12/12/20 Range/Units Unknown Unknown 21:26 WBC (4.8-10.8) K/uL RBC (4.2-5.4) M/uL Hgb (12.0-16.0) g/dL Hct (37-47) % MCV (80-100) fL MCH (25-34) pg MCHC (32-36) g/dL RDW Std Deviation (36.4-46.3) fL RDW Coeff of Steve (11.5-14.5) % Plt Count (130-400) K/uL MPV (7.4-10.4) fL Immature Gran % (Auto) % Neut % (Auto) % Lymph % (Auto) % [place] % (Auto) % Eos % (Auto) % Baso % (Auto) % Neut # (Auto) (1.4-6.5) K/uL Lymph # (Auto) (1.2-3.4) K/uL [place] # (Auto) (0.11-0.59) K/uL Eos # (Auto) (0-0.5) K/uL Baso # (Auto) (0-0.2) K/uL Immature Gran # (Auto) (0.00-0.02) K/uL D-Dimer (0-500) ug/L FEU Sodium (136-145) mmol/L Potassium (3.5-5.1) mmol/L Chloride (98-107) mmol/L Carbon Dioxide (21-32) mmol/L Anion Gap (3-11) BUN (7-18) mg/dl Creatinine (0.6-1.2) mg/dl Est Cr Clr Drug Dosing ml/min Est GFR ( Amer) Est GFR (Non-Af Amer) BUN/Creatinine Ratio (10-20) Glucose (70-99) mg/dl POC Glucose (70-99) mg/dl Estimat Average Glucose Hemoglobin A1c Calcium (8.5-10.1) mg/dl Magnesium (1.8-2.4) mg/dl Total Bilirubin (0.2-1) mg/dl AST (15-37) U/L ALT (12-78) U/L Alkaline Phosphatase (45-117) U/L Troponin I (0-0.045) ng/ml Total Protein (6.4-8.2) gm/dl Albumin (3.4-5.0) gm/dl Globulin (2.5-4.0) gm/dl Albumin/Globulin Ratio (0.9-2) Triglycerides (0-150) mg/dl Cholesterol (0-200) mg/dl LDL Cholesterol, Calc mg/dl VLDL Cholesterol, Calc mg/dl HDL Cholesterol mg/dl Cholesterol/HDL Ratio TSH (0.300-4.500) uIu/ml HCG, Qual (Negative) Urine Color Urine Appearance (Clear) Urine pH (4.5-7.5) Ur Specific [place] (1.000-1.030) Urine Protein (Negative) Urine Glucose (UA) (Negative) Urine Ketones (Negative) Urine Blood (Negative) Urine Nitrite (Negative) Urine Bilirubin (Negative) Urine Urobilinogen (Negative) Ur Leukocyte Esterase (Negative) Urine Opiates Screen Neg (Neg) Ur Methadone, Qual Neg (Neg) Urine Barbiturates Neg (Neg) Ur Phencyclidine (PCP) Neg (Neg) U Amphetamin/Meth Scrn Neg (Neg) MDMA (Ecstasy) Screen Neg (Neg) U Benzodiazepines Scrn Neg (Neg) Ur Cocaine Metabolite Neg (Neg) U Marijuana (THC) Screen Neg (Neg) Anaplasma Smear A. phagocytophilum DNA Babesia microti IgG Ab Babesia microti IgM Ab Babesia Interpretation Lyme Disease IgG Ab (Negative) Lyme Disease IgM Ab (Negative) COVID-19 Eval Order Cov[facility] at [facility] SARS-CoV-2 (PCR) NEGATIVE (Negative) Influenza Type A (PCR) Negative (Neg) Influenza Type B (PCR) Negative (Neg) RSV (RT-PCR) Negative (Neg) 12/12/20 12/12/20 12/12/20 Range/Units 21:26 11:30 11:30 WBC (4.8-10.8) K/uL RBC (4.2-5.4) M/uL Hgb (12.0-16.0) g/dL Hct (37-47) % MCV (80-100) fL MCH (25-34) pg MCHC (32-36) g/dL RDW Std Deviation (36.4-46.3) fL RDW Coeff of Steve (11.5-14.5) % Plt Count (130-400) K/uL MPV (7.4-10.4) fL Immature Gran % (Auto) % Neut % (Auto) % Lymph % (Auto) % [place] % (Auto) % Eos % (Auto) % Baso % (Auto) % Neut # (Auto) (1.4-6.5) K/uL Lymph # (Auto) (1.2-3.4) K/uL [place] # (Auto) (0.11-0.59) K/uL Eos # (Auto) (0-0.5) K/uL Baso # (Auto) (0-0.2) K/uL Immature Gran # (Auto) (0.00-0.02) K/uL D-Dimer (0-500) ug/L FEU Sodium (136-145) mmol/L Potassium (3.5-5.1) mmol/L Chloride (98-107) mmol/L Carbon Dioxide (21-32) mmol/L Anion Gap (3-11) BUN (7-18) mg/dl Creatinine (0.6-1.2) mg/dl Est Cr Clr Drug Dosing ml/min Est GFR ( Amer) Est GFR (Non-Af Amer) BUN/Creatinine Ratio (10-20) Glucose (70-99) mg/dl POC Glucose (70-99) mg/dl Estimat Average Glucose Hemoglobin A1c Calcium (8.5-10.1) mg/dl Magnesium (1.8-2.4) mg/dl Total Bilirubin (0.2-1) mg/dl AST (15-37) U/L ALT (12-78) U/L Alkaline Phosphatase (45-117) U/L Troponin I (0-0.045) ng/ml Total Protein (6.4-8.2) gm/dl Albumin (3.4-5.0) gm/dl Globulin (2.5-4.0) gm/dl Albumin/Globulin Ratio (0.9-2) Triglycerides (0-150) mg/dl Cholesterol (0-200) mg/dl LDL Cholesterol, Calc mg/dl VLDL Cholesterol, Calc mg/dl HDL Cholesterol mg/dl Cholesterol/HDL Ratio TSH (0.300-4.500) uIu/ml HCG, Qual (Negative) Urine Color Yellow Urine Appearance Clear (Clear) Urine pH 7.0 (4.5-7.5) Ur Specific [place] 1.011 (1.000-1.030) Urine Protein Negative (Negative) Urine Glucose (UA) Negative (Negative) Urine Ketones 1+ H (Negative) Urine Blood Negative (Negative) Urine Nitrite Negative (Negative) Urine Bilirubin Negative (Negative) Urine Urobilinogen Negative (Negative) Ur Leukocyte Esterase Negative (Negative) Urine Opiates Screen (Neg) Ur Methadone, Qual (Neg) Urine Barbiturates (Neg) Ur Phencyclidine (PCP) (Neg) U Amphetamin/Meth Scrn (Neg) MDMA (Ecstasy) Screen (Neg) U Benzodiazepines Scrn (Neg) Ur Cocaine Metabolite (Neg) U Marijuana (THC) Screen (Neg) Anaplasma Smear A. phagocytophilum DNA Pending Babesia microti IgG Ab Pending Babesia microti IgM Ab Pending Babesia Interpretation Pending Lyme Disease IgG Ab Negative (Negative) Lyme Disease IgM Ab Negative (Negative) COVID-19 Eval Order SARS-CoV-2 (PCR) (Negative) Influenza Type A (PCR) (Neg) Influenza Type B (PCR) (Neg) RSV (RT-PCR) (Neg) 12/12/20 12/12/20 12/12/20 Range/Units 11:30 11:30 11:30 WBC (4.8-10.8) K/uL RBC (4.2-5.4) M/uL Hgb (12.0-16.0) g/dL Hct (37-47) % MCV (80-100) fL MCH (25-34) pg MCHC (32-36) g/dL RDW Std Deviation (36.4-46.3) fL RDW Coeff of Steve (11.5-14.5) % Plt Count (130-400) K/uL MPV (7.4-10.4) fL Immature Gran % (Auto) % Neut % (Auto) % Lymph % (Auto) % [place] % (Auto) % Eos % (Auto) % Baso % (Auto) % Neut # (Auto) (1.4-6.5) K/uL Lymph # (Auto) (1.2-3.4) K/uL [place] # (Auto) (0.11-0.59) K/uL Eos # (Auto) (0-0.5) K/uL Baso # (Auto) (0-0.2) K/uL Immature Gran # (Auto) (0.00-0.02) K/uL D-Dimer (0-500) ug/L FEU Sodium 138 (136-145) mmol/L Potassium 3.4 L (3.5-5.1) mmol/L Chloride 106 (98-107) mmol/L Carbon Dioxide 25 (21-32) mmol/L Anion Gap 7.0 (3-11) BUN 18 (7-18) mg/dl Creatinine 0.66 (0.6-1.2) mg/dl Est Cr Clr Drug Dosing 97.2 ml/min Est GFR ( Amer) 120.2 Est GFR (Non-Af Amer) 103.7 BUN/Creatinine Ratio 26.8 H (10-20) Glucose 96 (70-99) mg/dl POC Glucose (70-99) mg/dl Estimat Average Glucose Hemoglobin A1c Calcium 8.8 (8.5-10.1) mg/dl Magnesium 2.0 (1.8-2.4) mg/dl Total Bilirubin 0.4 (0.2-1) mg/dl AST 20 (15-37) U/L ALT 20 (12-78) U/L Alkaline Phosphatase 56 (45-117) U/L Troponin I < 0.015 (0-0.045) ng/ml Total Protein 7.7 (6.4-8.2) gm/dl Albumin 3.9 (3.4-5.0) gm/dl Globulin 3.8 (2.5-4.0) gm/dl Albumin/Globulin Ratio 1.0 (0.9-2) Triglycerides (0-150) mg/dl Cholesterol (0-200) mg/dl LDL Cholesterol, Calc mg/dl VLDL Cholesterol, Calc mg/dl HDL Cholesterol mg/dl Cholesterol/HDL Ratio TSH 2.020 (0.300-4.500) uIu/ml HCG, Qual Negative (Negative) Urine Color Urine Appearance (Clear) Urine pH (4.5-7.5) Ur Specific [place] (1.000-1.030) Urine Protein (Negative) Urine Glucose (UA) (Negative) Urine Ketones (Negative) Urine Blood (Negative) Urine Nitrite (Negative) Urine Bilirubin (Negative) Urine Urobilinogen (Negative) Ur Leukocyte Esterase (Negative) Urine Opiates Screen (Neg) Ur Methadone, Qual (Neg) Urine Barbiturates (Neg) Ur Phencyclidine (PCP) (Neg) U Amphetamin/Meth Scrn (Neg) MDMA (Ecstasy) Screen (Neg) U Benzodiazepines Scrn (Neg) Ur Cocaine Metabolite (Neg) U Marijuana (THC) Screen (Neg) Anaplasma Smear See Comment A. phagocytophilum DNA Babesia microti IgG Ab Babesia microti IgM Ab Babesia Interpretation Lyme Disease IgG Ab (Negative) Lyme Disease IgM Ab (Negative) COVID-19 Eval Order SARS-CoV-2 (PCR) (Negative) Influenza Type A (PCR) (Neg) Influenza Type B (PCR) (Neg) RSV (RT-PCR) (Neg) 12/12/20 12/12/20 12/12/20 Range/Units 11:30 11:30 11:29 WBC 7.43 (4.8-10.8) K/uL RBC 4.29 (4.2-5.4) M/uL Hgb 13.4 (12.0-16.0) g/dL Hct 39.3 (37-47) % MCV 91.6 (80-100) fL MCH 31.2 (25-34) pg MCHC 34.1 (32-36) g/dL RDW Std Deviation 42.5 (36.4-46.3) fL RDW Coeff of Steve 12.7 (11.5-14.5) % Plt Count 302 (130-400) K/uL MPV 9.5 (7.4-10.4) fL Immature Gran % (Auto) 0.1 % Neut % (Auto) 53.7 % Lymph % (Auto) 35.5 % [place] % (Auto) 8.1 % Eos % (Auto) 1.5 % Baso % (Auto) 1.1 % Neut # (Auto) 3.99 (1.4-6.5) K/uL Lymph # (Auto) 2.64 (1.2-3.4) K/uL [place] # (Auto) 0.60 H (0.11-0.59) K/uL Eos # (Auto) 0.11 (0-0.5) K/uL Baso # (Auto) 0.08 (0-0.2) K/uL Immature Gran # (Auto) 0.01 (0.00-0.02) K/uL D-Dimer < 190 (0-500) ug/L FEU Sodium (136-145) mmol/L Potassium (3.5-5.1) mmol/L Chloride (98-107) mmol/L Carbon Dioxide (21-32) mmol/L Anion Gap (3-11) BUN (7-18) mg/dl Creatinine (0.6-1.2) mg/dl Est Cr Clr Drug Dosing ml/min Est GFR ( Amer) Est GFR (Non-Af Amer) BUN/Creatinine Ratio (10-20) Glucose (70-99) mg/dl POC Glucose 94 (70-99) mg/dl Estimat Average Glucose Hemoglobin A1c Calcium (8.5-10.1) mg/dl Magnesium (1.8-2.4) mg/dl Total Bilirubin (0.2-1) mg/dl AST (15-37) U/L ALT (12-78) U/L Alkaline Phosphatase (45-117) U/L Troponin I (0-0.045) ng/ml Total Protein (6.4-8.2) gm/dl Albumin (3.4-5.0) gm/dl Globulin (2.5-4.0) gm/dl Albumin/Globulin Ratio (0.9-2) Triglycerides (0-150) mg/dl Cholesterol (0-200) mg/dl LDL Cholesterol, Calc mg/dl VLDL Cholesterol, Calc mg/dl HDL Cholesterol mg/dl Cholesterol/HDL Ratio TSH (0.300-4.500) uIu/ml HCG, Qual (Negative) Urine Color Urine Appearance (Clear) Urine pH (4.5-7.5) Ur Specific [place] (1.000-1.030) Urine Protein (Negative) Urine Glucose (UA) (Negative) Urine Ketones (Negative) Urine Blood (Negative) Urine Nitrite (Negative) Urine Bilirubin (Negative) Urine Urobilinogen (Negative) Ur Leukocyte Esterase (Negative) Urine Opiates Screen (Neg) Ur Methadone, Qual (Neg) Urine Barbiturates (Neg) Ur Phencyclidine (PCP) (Neg) U Amphetamin/Meth Scrn (Neg) MDMA (Ecstasy) Screen (Neg) U Benzodiazepines Scrn (Neg) Ur Cocaine Metabolite (Neg) U Marijuana (THC) Screen (Neg) Anaplasma Smear A. phagocytophilum DNA Babesia microti IgG Ab Babesia microti IgM Ab Babesia Interpretation Lyme Disease IgG Ab (Negative) Lyme Disease IgM Ab (Negative) COVID-19 Eval Order SARS-CoV-2 (PCR) (Negative) Influenza Type A (PCR) (Neg) Influenza Type B (PCR) (Neg) RSV (RT-PCR) (Neg) Medications Administered Current Inpatient Medications Acetaminophen (Acetaminophen 325 Mg Tab) 650 mg PO Q4H PRN PRN Reason: Pain or Fever Stop: 01/11/21 18:35 Al Hydrox/Mg Hydrox/Simethicone (Aluminum/Magnesium Susp 30 Ml Udc) 15 ml PO Q4H PRN PRN Reason: Dyspepsia Stop: 01/11/21 18:35 Estrogens Conjugated (Estrogens, Conjugated 0.625 Mg Tab) 0.625 mg PO DAILY DAPHNE Stop: 01/12/21 08:59 Last Admin: 12/13/20 08:46 Dose: Not Given Documented by: Magnesium Hydroxide (Magnesium Hydroxide Susp 30 Ml Udc) 30 ml PO Q12H PRN PRN Reason: Constipation Stop: 01/11/21 18:35 Metoprolol Succinate (Metoprolol Succ 25mg Ext Rel Tab) 25 mg PO QPM DAPHNE Stop: 01/11/21 20:59 Last Admin: 12/12/20 21:31 Dose: 25 mg Documented by: Ondansetron HCl (Ondansetron Inj 2 Mg/Ml 2 Ml Vial) 4 mg IV Q6H PRN PRN Reason: Nausea Stop: 01/11/21 18:35 Polyethylene Glycol (Polyethylene (Miralax) 17 Gm Pack) 17 gm PO DAILY PRN PRN Reason: Constipation Stop: 01/11/21 18:35
[2020-12-13 09:14] LABS: Estimated Average Glucose 97 mg/dl
--- NOTE | 2020-12-13 12:56 | Discharge Summary ---
Date of Service December 13, 2020 Admission HPI Per Admitting Provider This is a 50 year old F who is otherwise healthy who presents to ED 2/2 to palpitations x 1 week. Sx have been worsening causing her to be dizzy. Father is at bedside. She was at [facility] today when palpitations got worse and felt like she was going to pass out to she came to ED. She was to see PCP in clinic. Sx comes and goes. Caffeine seems to worsen sx. Drinks 2 cups daily which is normal for her. Occasional ETOH use. Denies new medications. She denies any recent illness. She has chronic difficulty with constipation and she takes stool softeners for that. She does admit to anxiety and increased stress. Occas sionally a, "little piece of xanax," once a month she takes. She does not take anything for anxiety on regular basis. Denies f/c/s, chest pain, sob with exertion, sob, cough, uri sx, n/v/d, abdominal pain, change in bowel or bladder habits. She is very active and was out hiking. She did notice tick on her legs. No prior hx of tick borne disease. She has experienced palpitations in past, but not to this degree. Admission Exam Per Admitting Provider Constitutional: WD/WN, F, vitals as above, NAD, sitting up in bed, pleasant, conversing easily Head: Normocephalic, Atraumatic Eyes: PERRL, conjunctivae normal, anicteric sclerae ENMT: external ear and nose normal, oropharynx normal Neck: trachea midline, no thyromegaly normal visual inspection Respiratory: normal respiratory effort, lungs clear to auscultation, no wheeze, rales, rhonchi. Normal insp/exp effort, no accessory muscle use Cardiovascular: RRR, no murmur, no edema Vessels: no JVD or carotid bruit Chest: normal inspection of chest Abdomen: normal bowel sounds, soft, nontender, no hepatosplenomegaly Musculoskeletal: no cyanosis or clubbing, extremities motor strength 5/5 Skin: no rashes, warm and dry normal turgor Neurologic: PERRL, no face palsy, no dysarthria CN's II-XI intact bilaterally and moves all extremities Psychiatric: A+Ox3, euthymic affect : deferred Principal Diagnosis Symptomatic PVCs Hypokalemia Discharge Exam Constitutional: WD/WN, F, vitals as above, NAD, sitting up in bed, pleasant, conversing easily Head: Normocephalic, Atraumatic Eyes: PERRL EOMI, conjunctivae normal, anicteric sclerae ENMT: external ear and nose normal, oropharynx normal Neck: trachea midline, no thyromegaly normal visual inspection Respiratory: normal respiratory effort, lungs clear to auscultation, no wheeze, rales, rhonchi. Normal insp/exp effort, no accessory muscle use Cardiovascular: RRR, no murmur, no edema Chest: normal inspection of chest Abdomen: normal bowel sounds, soft, nontender Musculoskeletal: no cyanosis or clubbing, extremities motor strength 5/5 Skin: no rashes, warm and dry normal turgor Neurologic: PERRL, no face palsy, no dysarthria, moves all extremities Psychiatric: A+Ox3, euthymic affect Discharge Data Allergies Allergy/AdvReac Type Severity Reaction Status Date / Time No Known Drug Allergies Allergy Verified 12/12/20 13:00 Consultations 12/12/20 14:07 ED Decision to Admit Stat 12/12/20 14:08 Consult Cardiology Routine Hospital Course (1) Palpitations: (2) Ventricular premature beats: (3) Hypokalemia: (4) Abnormal ECG: This is a 50 year old F who is otherwise healthy who presents to ED 2/2 to palpitations x 1 week. ECG shows sinus tachycardia and telemetry reveals a multifocal PVC. She was seen and evaluated by cardiology in ED. She received metoprolol tartrate 25 mg x 1 as well as potassium replacement. Admit to telemetry for further heart monitoring Cardiology consulted Echocardiogram obtained -normal study Metoprolol initiated Replaced potassium, K on admission 3.4 Lyme - negative, Anaplasma blood smear negative Anaplasma and babesiosis serology - pending Patient does have history of anxiety and states she occasionally takes Xanax and vapes medical marijuana -obtained drug tox screen- negative Clinically patient is much improved, denies any more dizziness or palpitations Telemetry reviewed, shows mostly sinus rhythm Discussed with cardiology, plan to follow-up today 12/13/20, in the office for a Zio patch, will discharge on metoprolol Dispo: Home, follow up w/ cardiology and PCP PCP: Dr. Carrillo Total Time Total Time Spent Total Time Spent (In Minutes): 40 Total Time Includes: Examination of the Patient, Discharge Planning, Medication Reconciliation and Communication With Other Providers Discharge Plan Discharge Items Patient Disposition: Home - Self-Care Reason For Visit: SINUS TACHYCARDIA, PALPITATIONS Discharge Diagnosis: Symptomatic PVCs Hypokalemia Activity: Per Instructions section Non-emergency contact: Primary Care Provider Call non-emergency contact if: you have any medication questions and your symptoms worsen Follow-up/Referrals: Landry Carrillo DO [Primary Care Provider] - Diet: Regular Addtl Attending Provider Instructions: As discussed with your logistics technician, follow-up at cardiology office today, December 13, for Zio patch. Take metoprolol succinate 25 mg daily as prescribed. Follow-up with your primary care doctor, within 1 to 2 weeks. At that time potassium level should be rechecked. Pending Studies at Discharge: Yes Studies:: Babesia, Anaplasma pending Stand-Alone Forms: [employer], Smoking Cessation Medications and DC Order Prescriptions: New metoprolol succinate 25 mg Tablet Extended Release 24 Hr 25 mg PO QPM Qty: 30 RF: 0 Continued conjugated estrogens 0.625 mg tablet 0.625 mg PO DAILY RF: 0 Discharge Orders: Discharge Order (Routine); Ordered 12/13/20 Ordered By: Hugo Cassidy Admission Data Admit Date/Time: 12/12/20 14:08 Attending Provider: Hugo Cassidy Admit Provider: Christofer Gerber Primary Care Provider: Landry Carrillo Other Providers: Kyle Ewing ; Christofer Gerber Other Interventions: Discharge Summary Assessment (RN) Last Done: 12/13/20 12:59
--- NOTE | 2020-12-13 13:32 | Electrocardiogram Report ---
Test Reason : Blood Pressure : / mmHG Vent. Rate : 074 BPM Atrial Rate : 074 BPM P-R Int : 158 ms QRS Dur : 094 ms QT Int : 414 ms P-R-T Axes : 069 -11 051 degrees QTc Int : 459 ms Normal sinus rhythm Incomplete right bundle branch block Borderline ECG When compared with ECG of 12-DEC-2020 11:23, ST no longer depressed in Inferior leads ST no longer depressed in Anterolateral leads Nonspecific T wave abnormality, improved in Anterior leads Confirmed by Garrison Fair ([id number]) on 12/13/2020 1:32:04 PM Referred By: REFERRED SELF Confirmed By:Garrison Fair
--- NOTE | 2020-12-13 13:48 | Cardiology Progress Note ---
Date of Service December 13, 2020 Assessment & Plan (1) Frequent PVCs: (2) Dizziness: (3) Tick bite: (4) Abnormal ECG: (5) Hypokalemia: Clinically she states that she feels 100% better compared to presentation. 2D echocardiogram reveals a structurally normal heart. Diffuse EKG abnormalities improved with addition of metoprolol. Questionable QT prolongation but patient denies any history of syncope. We will discharge home on metoprolol succinate 25 mg daily. 7-day Zio patch monitor as an outpatient. Follow-up with me in 3 to 4 weeks. Okay to DC to home at this time. Admission and Anticipated Discharge Date Admission Date: December 12, 2020 Subjective Patient seen and examined, chart reviewed. States that she feels 100% better today. No recurrences of palpitations or dizziness overnight. Telemetry reviewed: Normal sinus rhythm without arrhythmia or significant ectopy. Review of Systems Review of Systems: All systems reviewed & are unremarkable except as noted in HPI & below Physical Exam Physical Exam: Physical Exam: General: Awake, alert and oriented x 3. No acute distress. HEENT: Normocephalic, atraumatic. Pupils equal, round and reactive to light and accommodation. Extraocular muscles are intact. Anicteric sclera. Moist mucous membranes. Neck: No JVD. No bruit. Cardiovascular: Regular. No S-4. Normal S-1 and S-2. No S-3. No murmurs, rubs or gallops. Pulmonary: Clear to auscultation bilaterally. No rales, rhonchi, or wheezing. Abdomen: Bowel sounds x 4, soft. No rebound, guarding or tenderness. No organomegaly. Extremities: No clubbing, cyanosis or edema. +2 pedal pulses bilaterally. Skin: Warm and dry. Results & Data ([facility]) Vital Signs (Past 12 Hours) Vital Signs Temp Pulse Pulse Resp BP Pulse Ox 12/13/20 12:59 36.6 C 63 18 105/63 92 12/13/20 11:08 36.6 C 63 18 105/63 92 12/13/20 08:36 70 12/13/20 08:21 36.9 C 62 18 107/70 98 12/13/20 04:00 37.2 C 18 99
[2020-12-17 20:48] LABS: Babesia microti IgG <1:64 titer (<1:64)
== END 2020-12-13 13:25 | disposition home or self-care (01) ==
LOC: 2W 11:03 → ED 11:03 → SUATTDRO 14:08 → 2W 17:19